=== PATIENT | female | born 1970 | race Caucasian/White ===

== ENCOUNTER 2016-12-04 09:28 | Emergency (ER) | payer SELFPAY ==
[2016-12-04 10:10] LABS: ABSOLUTE LYMPHOCYTES (AUTO) 1.4 10^3/uL (0.5-4.7); ABSOLUTE MONOCYTES (AUTO) 0.4 10^3/uL (0.1-1.4); ABSOLUTE NEUT (AUTO) 3.6 10^3/uL (1.7-8.2); BASOPHILS % (AUTO) 0.8 % (0-2); EOSINOPHILS % (AUTO) 0.8 % (0-6); HEMATOCRIT 27.4 % (36.0-47.0); HEMOGLOBIN 8.8 g/dL (12.0-15.5); LYMPHOCYTES % (AUTO) 25.3 % (13-45); MEAN CORPUSCULAR HEMOGLOBIN 26.9 pg (27.0-33.4); MEAN CORPUSCULAR HGB CONC 32.2 g/dL (32.0-36.0); MEAN CORPUSCULAR VOLUME 84 fl (80-97); MONOCYTES % (AUTO) 7.2 % (3-13); RED BLOOD COUNT 3.27 10^6/uL (3.72-5.28); RED CELL DISTRIBUTION WIDTH 18.9 % (11.5-14.0); SEGMENTED NEUTROPHILS % (AUTO) 65.9 % (42-78); WHITE BLOOD COUNT 5.5 10^3/uL (4.0-10.5)
[2016-12-04 10:13] LABS: APPEARANCE,URINE CLEAR; BILIRUBIN,URINE NEGATIVE (NEGATIVE); GLUCOSE, URINE NEGATIVE (NEGATIVE); KETONES,URINE NEGATIVE (NEGATIVE); LEUKOCYTE ESTERASE,URINE NEGATIVE (NEGATIVE); NITRITE,URINE NEGATIVE (NEGATIVE); PROTEIN,URINE NEGATIVE (NEGATIVE); URINE SPECIFIC GRAVITY 1.018; UROBILINOGEN,URINE NEGATIVE mg/dL (<2.0)
[2016-12-04 10:32] LABS: ALANINE AMINOTRANSFERASE 29 U/L (9-52); ALBUMIN 3.7 g/dL (3.5-5.0); ALKALINE PHOSPHATASE 54 U/L (38-126); ANION GAP 10 (5-19); ASPARTATE AMINO TRANSFERASE 20 U/L (14-36); BILIRUBIN,TOTAL 0.3 mg/dL (0.2-1.3); BLOOD UREA NITROGEN 18 mg/dL (7-20); CALCIUM 9.1 mg/dL (8.4-10.2); CARBON DIOXIDE 25 mmol/L (22-30); CHLORIDE 105 mmol/L (98-107); CREATINE KINASE 153 U/L (30-135); GLUCOSE 80 mg/dL (75-110); POTASSIUM 4.3 mmol/L (3.6-5.0); SODIUM 140.2 mmol/L (137-145); TOTAL PROTEIN 6.3 g/dL (6.3-8.2)
[2016-12-04 10:44] LABS: CREATINE KINASE MB 3.31 ng/mL (<4.55); TROPONIN I < 0.012 ng/mL
--- NOTE | 2016-12-04 11:31 | ER Document Report ---
ED General - General Mode of Arrival: Ambulatory Information source: Patient TRAVEL OUTSIDE OF THE [place] IN LAST 30 DAYS: No - HPI Patient complains to provider of: Dizziness Onset: Yesterday Onset/Duration: Gradual, Persistent Associated symptoms: Other - Lightheaded, pale <PREMA LARKIN - Last Filed: 12/04/16 11:26> <CLARA QUINN - Last Filed: 12/04/16 17:36> - General Chief Complaint: Dizziness Stated Complaint: DIZZINESS Notes: Patient is a 46-year-old female, with history of anemia, coronary artery disease , hypertension, DE, stent placement, and migraines, who presents to the emergency department concerned of dizziness and lightheadedness onset yesterday. Patient states she feels this way when her blood levels drop. Patient's last blood transfusion was in August, and she had Hgb 10 after that transfusion. Patient states they do not know what is causing her to become anemic, she has had a colonoscopy where AVMs were discovered, but she was told that the bleeding is coming from small capillaries,not explaining the significant loss of blood. Patient states that her bone marrow has not been tested. Patient is in the process of moving to [place] from a very small town in [place]. 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 She has been worked up with the camera capsule, and endoscopy and colonoscopy. She reports the blood loss was attributed to heavy periods due to minimal findings on GI workup. She had a uterine ablation done and the anemia continue to be a problem. Her last transfusion was in August of this year. She reports 2 weeks ago she had a hemoglobin of 10.0 She is moving here from a small town in [facility], she plans to return for another [facility] in the next 1-2 days and was concerned about travel without being transfused first, as she has had precipitous drops in hemoglobin when it began to get low in the past. (CLARA QUINN) - Related Data Allergies/Adverse Reactions: spironolactone Allergy (Verified 12/04/16 09:31) tape Adverse Reaction (Uncoded 12/04/16 09:31) Past Medical History - General Information source: Patient - Social History Smoking Status: Unknown if Ever Smoked Lives with: Spouse/Significant other Family History: None Patient has suicidal ideation: No Patient has homicidal ideation: No - Past Medical History Cardiac Medical History: Reports: Hx Coronary Artery Disease, Hx Heart Attack, Hx Hypertension Neurological Medical History: Reports: Hx Migraine Past Surgical History: Reports: Hx Coronary Stent <TRAEPREMA - Last Filed: 12/04/16 11:26> Review of Systems - Review of Systems Constitutional: No symptoms reported EENT: No symptoms reported Cardiovascular: See HPI, Dizziness, Lightheaded Respiratory: No symptoms reported Gastrointestinal: No symptoms reported Genitourinary: No symptoms reported Female Genitourinary: No symptoms reported Musculoskeletal: No symptoms reported Skin: See HPI, Other - pale Hematologic/Lymphatic: No symptoms reported Neurological/Psychological: No symptoms reported -: Yes All other systems reviewed and negative <PREMA LARKIN - Last Filed: 12/04/16 11:26> Physical Exam - Vital signs Interpretation: Normal - General General appearance: Alert - HEENT Head: Normocephalic, Atraumatic Eyes: Normal Pupils: PERRL - Respiratory Respiratory status: No respiratory distress Chest status: Nontender Breath sounds: Normal - Cardiovascular Rhythm: Regular Heart sounds: Normal auscultation Murmur: No - Abdominal Inspection: Obese Tenderness: Nontender - Back Back: Normal, Nontender - Extremities General upper extremity: Normal inspection, Nontender General lower extremity: Normal inspection, Nontender - Neurological Neuro grossly intact: Yes Cognition: Normal Orientation: AAOx4 Watson Coma Scale Eye Opening: Spontaneous Watson Coma Scale Verbal: Oriented Randa Coma Scale Motor: Obeys Commands Watson Coma Scale Total: 15 Speech: Normal - Psychological Associated symptoms: Normal affect, Normal mood - Skin Skin Temperature: Warm Skin Moisture: Dry Skin Color: Normal <PREMA LARKIN - Last Filed: 12/04/16 11:26> Course - Laboratory Result Diagrams: 12/04/16 09:50 12/04/16 09:50 <PREMA LARKIN - Last Filed: 12/04/16 11:26> - Laboratory Result Diagrams: 12/04/16 09:50 12/04/16 09:50 - EKG Interpretation by Sd EKG shows normal: Sinus rhythm, [place], Intervals, ST-T Waves. abnormal: QRS Complexes - old inferior infarct Rate: Normal - 57 Rhythm: NSR - Transfer of Care Care transferred to following provider: Dr. Baeza <CLARA QUINN - Last Filed: 12/04/16 17:36> - Vital Signs Vital signs: Temp Pulse Resp BP Pulse Ox 97.9 F 81 16 97/60 L 100 12/04/16 14:00 12/04/16 12:00 12/04/16 14:00 12/04/16 13:01 12/04/16 14:00 - Laboratory Laboratory results interpreted by me: 12/04/16 12/04/16 12/04/16 09:50 09:50 09:50 RBC 3.27 L Hgb 8.8 L Hct 27.4 L MCH 26.9 L RDW 18.9 H Iron 14.0 L Ferritin 4.85 L Creatine Kinase 153 H Crossmatch 12/04/16 14:48 RBC Hgb Hct MCH RDW Iron Ferritin Creatine Kinase Crossmatch See Detail - Transfer of Care Notes: 12/04/16 17:36 Patient is to receive 2 units of packed red cells and then be discharged to follow-up with Dr. Vargas next week. (CLARA QUINN) Discharge <PREMA LARKIN - Last Filed: 12/04/16 11:26> <CLARA QUINN - Last Filed: 12/04/16 17:36> - Discharge Clinical Impression: Symptomatic anemia, Iron deficiency anemia secondary to blood loss (chronic) Condition: Stable Disposition: HOME, SELF-CARE Additional Instructions: Follow-up with Dr. Vargas at [facility] when you return from [place]. RETURN TO THE EMERGENCY ROOM IF ANY NEW OR WORSENING SYMPTOMS. Referrals: CALOS VARGAS MD [ACTIVE STAFF] - Follow up in 1 week Scribe Attestation: 12/04/16 16:02 I personally performed the services described in the documentation, reviewed and edited the documentation which was dictated to the scribe in my presence, and it accurately records my words and actions. (CLARA QUINN) Scribe Documentation - Scribe Written by Scribe:: Prema Larkin 12/04/2016 1127 acting as scribe for :: Fredrick <PREMA LARKIN - Last Filed: 12/04/16 11:26>
[2016-12-04] MEDS ORDERED: NORMAL SALINE 250 ML IV PRN (11:32)
[2016-12-04 12:36] LABS: FERRITIN 4.85 ng/mL (6.2-137.0)
--- NOTE | 2016-12-04 13:32 | EKG REPORT ---
SEVERITY:- ABNORMAL ECG - SINUS RHYTHM INFERIOR INFARCT, AGE INDETERMINATE : Confirmed by: Mark Corley MD 04-Dec-2016 13:30:41
[2016-12-05 00:32] VITALS: BP 108/69
== END 2016-12-05 00:40 | disposition home or self-care (01) ==
LOC: ER 09:28
DX: D50.0 Iron deficiency anemia secondary to blood loss (chronic) (principal); Q27.33 Arteriovenous malformation of digestive system vessel; R42 Dizziness and giddiness; I25.10 Atherosclerotic heart disease of native coronary artery without angina pectoris; I25.2 Old myocardial infarction; I10 Essential (primary) hypertension; Z98.61 Coronary angioplasty status; Z88.8 Allergy status to other drugs, medicaments and biological substances
CPT/HCPCS: 93005; 99284; 86900; 86901; 36415; 82553; 36430; 86850; 82607; 82550; 82728; 82746; 83540; 83550; 85025; 85045; 80053; 81001; 84484; 84466; 86920; 93010; P9016